=== PATIENT | male | born 2000 | race Caucasian/White ===

== ENCOUNTER 2019-05-14 06:30 | Emergency (ER) | payer MEDICAID ==
[~2019-05-14] VITALS: Ht 167.6 cm; Wt 55.8 kg
[2019-05-14] MEDS ORDERED: PREDNISONE50 MG PO (08:46)
== END 2019-05-14 09:00 | disposition home or self-care (01) ==
LOC: ED 06:30
DX: M77.9 Enthesopathy, unspecified (principal); M25.531 Pain in right wrist

== ENCOUNTER 2019-06-28 01:42 | Emergency (ER) | payer MEDICAID ==
[~2019-06-28] VITALS: Ht 170.1 cm; Wt 55.8 kg
[~2019-06-28 01:42] MED LIST: PREDNISONE50 MG PO
== END 2019-06-28 02:50 | disposition home or self-care (01) ==
LOC: ED 01:42
DX: H10.212 Acute toxic conjunctivitis, left eye (principal)